=== PATIENT | male | born 1950 | race Caucasian/White ===

== ENCOUNTER 2025-05-23 03:36 | Inpatient (IN) | payer MEDICARE ==
[~2025-05-23] VITALS: Ht 177.8 cm; Wt 84.0 kg
[2025-05-23] VITALS (13 sets, daily range): BP systolic 116–155; BP diastolic 52–65; PULSE 59–70; RESP 14–21; TEMP 97.8–99.2; O2SAT 94–99
--- NOTE | 2025-05-23 03:50 | Physician Documentation ---
History of Present Illness ~ Chief Complaint: Shortness of Breath Stated Complaint: TRANSFER Time Seen by MD: 03:49 HPI 75-year-old male who presents as a transfer from outside hospital as a possible NSTEMI The patient tells me that over the last week he has been having viral type symptoms with congestion and a cough. He did have a really bad coughing fit where he could not catch his breath. Following this he developed pain in his central chest. He describes it as chest pressure, no radiation. He went to the outside hospital, where he was told all of his testing was normal except his repeat troponin was elevated. He currently denies any chest pain or other symptoms. He denies any history of heart problems. He had a normal stress test about 2 or 3 years ago. Review of Systems Constitutional: Denies: fever ENT: Reports: nose congestion Respiratory: Reports: cough, shortness of breath Cardiovascular: Reports: chest pain Physical Exam Vital Signs: Temperature: 98.1, Source: Oral, Heart Rate: 69, Respiratory Rate: 18, BP: 147/54, Pulse Oximetry: 98, Weight: 84.090 Physical Exam General: This is a pleasant and very well-appearing older man, sitting calmly in bed HEENT: Atraumatic, oropharynx is moist Heart: Regular rate, normal-appearing peripheral perfusion Lungs: normal work of breathing, normal oxygen saturation on room air Neuro: Alert and oriented Psychiatric: Calm and cooperative with exam Progress Results/Orders Results/Orders Orders - NAFISA HARVEY MD Chest,Single View (05/23/25 03:46) Monitor (05/23/25 03:46) Saline Lock (05/23/25 03:46) Oxygen (05/23/25 03:46) Cbc/Diff (05/23/25 03:46) BMP (05/23/25 03:46) PBNP (05/23/25 03:46) Hs Troponin I W Calculations (05/23/25 03:46) Hs Troponin I W Calculations (05/23/25 05:46) Hs Troponin I W Calculations (05/23/25 06:46) Completed Orders - NAFISA HARVEY MD Electrocardiogram (05/23/25 03:46) Vital Signs 05/23/25 03:37 Temp 98.1 Pulse 69 Resp 18 B/P (MAP) 147/54 Pulse Ox 98 Laboratory Tests Test 05/23/25 03:54 EKG/XRAY/CT/US/VASC/MRI EKG : Additional Comment I personally interpreted the EKG and this shows: Sinus rhythm, rate 69, QTC 428, no STEMI, there was artifact Consults/PCP Consults/PCP : Additional Comment Consult: I spoke to the internal medicine service, for admission in the hospital Heart Score: Heart Score Response (Comments) Value History Moderate Suspicious 1 EKG Normal 0 Age >65 2 Risk Factors No known risk factors 0 Troponin >3 x's Normal limit 2 Total 5 Medical Decision Making Additional information obtaine: old records Findings Reviewed outside hospital records including previous workup that shows an elevated troponin of 0.24 Heart Score: 5 Differential Dx:Considerations: Include: myocardial infarction, pneumonia, upper resp. infection Additional Infomation The patient presents with an episode of chest pain and new slightly elevated troponin. Currently he is asymptomatic. He already received Lovenox. Repeat EKG without acute ischemic changes. Repeat labs including troponin will be obtained and he will be admitted to the medicine service for further workup and treatment. Departure Impression: Primary Impression: NSTEMI (non-ST elevated myocardial infarction) Referrals: NO PRIMARY CARE PROVIDER (PCP) Signature Scribe Signature: na Attestation: NAFISA Bedoya MD May 23, 2025 03:50
--- NOTE | 2025-05-23 03:52 | ELECTROCARDIOGRAPH REPORT ---
[facility] Test Date: 2025-05-23 Test Time: 03:49:55 Pat Name: ROBERTA EISENBERG Department: [facility]- Patient ID: [id number] Room: ED 1 Gender: M Production Clerks Supervisor: : 1950 Requested By: NAFISA HARVEY Order Number: [id number] Reading MD: Dr. XIMENA Padilla Measurements Intervals [place] Rate: 69 P: 0 IA: 0 QRS: -58 QRSD: 104 T: 36 QT: 399 QTc: 428 Interpretive Statements normal sinus rhythm with baseline artifact Left anterior fascicular block Abnormal R-wave progression, late transition Borderline T abnormalities, anterior leads Baseline wander in lead(s) I Electronically Signed On 05-24-2025 15:17:[address] XIMENA Padilla Please click the below link to view image of tracing.
[2025-05-23 04:10] LABS: MEAN PLATELET VOLUME 6.5 FL (7.4-10.4); RED CELL DISTRIBUTION WIDTH 13.3 % (11.5-14.5)
[2025-05-23 04:27] LABS: CREATININE 1.08 MG/DL (0.60-1.10); PRO BRAIN NATRIURETIC PEPTIDE 305 PG/ML (0-450); TOTAL CARBON DIOXIDE 23.9 MMOL/L (24-32); eCRCL 61 ML/MIN; eGFR 67 ML/MIN
[2025-05-23] MEDS ORDERED: magnesium Cl slow-release 64mg tablet PO PRN (05:45)
[2025-05-23] MEDS: HEPARIN DRIP-CARDIAC**PHARMACIST-TO-DOSE IV ONE (05:45)
[2025-05-23] MEDS ORDERED: magnesium sulf-water 4G/100mL 100 ML IV PRN (05:45)
[2025-05-23] MEDS ORDERED: aminophylline 250mg/10ml inj. IV PRN (05:45)
[2025-05-23] MEDS ORDERED: magnesium hydroxide 30ml (MOM) UD suspension PO PRN (05:45)
[2025-05-23] MEDS ORDERED: ondansetron/PF 4mg/2ml inj IV PRN (05:45)
[2025-05-23] MEDS ORDERED: mag hydrox/Alum hydrox/simeth 30ml oral suspension PO PRN (05:45)
[2025-05-23] MEDS ORDERED: magnesium sulf-water 2g/50mL 50 ML IV PRN (05:45)
[2025-05-23] MEDS ORDERED: potassium Cl 40MEQ/1/2NS 520ml 520 ML IV PRN (05:45)
[2025-05-23] MEDS ORDERED: regadenoson 0.4mg/5ml syringe IV PRN (05:45)
[2025-05-23] MEDS ORDERED: potassium Cl 20 mEq SR tablet PO PRN ×2 (05:45)
[2025-05-23] MEDS ORDERED: metoprolol tartrate 1mg/ml inj IV PRN (05:45)
--- NOTE | 2025-05-23 05:55 | HISTORY AND PHYSICAL-Residence ---
History & Physical Providers to Resident Creating Document: ANATOLIY SOLOMON, RES ~ History of Present Illness Reason for Admit\Complaint: NSTEMI History of Present Illness This is a 75-year-old male with a history of hypertension, hyperlipidemia, diabetes mellitus was transferred from [place] from [facility]. Patient was having cough and cold for the last two days and yesterday night after having dinner he had a bout of cough and post that he was unable to breathe. During the same time he also had a crushing chest pain in the middle of the chest, graded 6/10, nonradiating, lasted up to 4-5 hours until he was taken to the ER at [facility]. He denied any palpitations, shortness of breadth, orthopnea, PND, leg swellings, fever. He had one episode of chest pain during a hike few years ago, he had a stress test about 2-3 years ago which was normal. He also saw a park interpretive specialist at [place] in was told he had no issues with heart. Course at [facility]: He was given breathing treatment with which his breathing got better. COVID and influenza test was negative. First troponin negative 2nd troponin 0.24. Was also given 325 mg of aspirin and one full dose of Lovenox. Later his chest pain improved. Currently his chest pain is about 1/10. Allergies: Coded Allergies: metronidazole (Verified Allergy, Unknown, 05/23/25) Past Medical History Past Medical History Hypertension Hyperlipidemia Diabetes mellitus Past Surgical History Surgical History Comment No previous surgeries Had colonoscopy one month ago showed benign polyps Family History Family History: FH: cancer FATHER FH: heart disease MOTHER FH: prostate cancer GRANDFATHER OR GRANDMOTHER Past Social History Social History Comment He quit smoking more than 45 years ago He drinks wine occasionally No history of drug use Lives with his partner Functionally independent He previously worked in the [employer] and [employer] ROS Constitutional: Denies: no symptoms reported, see HPI, chills, diaphoresis, fever, malaise, weakness, other Eyes: Denies: no symptoms reported, see HPI, pain, discharge, blurred vision, double vision, itching, photophobia, redness, tearing, other ENT: Reports: nose congestion Respiratory: Reports: cough, shortness of breath Cardiovascular: Reports: chest pain Gastrointestinal: Denies: no symptoms reported, see HPI, abdomen distended, abdominal pain, nausea, vomiting, diarrhea, constipated, melena, hematemesis, hematochezia, rectal bleeding, rectal pain, dysphagia, poor appetite, poor fluid intake, other Genitourinary: Denies: no symptoms reported, see HPI, burning, discharge, dysuria, frequency, flank pain, hematuria, incontinence, pain, decreased urine output, urgency, other Male Genitalia: Denies: no symptoms reported, see HPI, penile discharge, penile sore, testicular pain, testicular swelling, other Neurological: Denies: no symptoms reported, see HPI, speech problem, headache, dizziness, fainting, tingling, left sided numbness, right sided numbness, left sided weakness, right sided weakness, problems walking, unable to move lower ext, unable to move upper ext, petit mal seizures, tonic-clonic seizures, cognitive dysfunction, other Musculoskeletal: Denies: no symptoms reported, see HPI, pain, swelling, back pain, gout, joint pain, joint swelling, muscle pain, muscle swelling, muscle stiffness, neck pain, other Exam Vitals: Vital Signs Date Time Temp Pulse Resp B/P (MAP) Pulse Ox O2 Delivery O2 Flow Rate FiO2 05/23/25 05:23 05/23/25 05:23 98.1 76 12 97 0 General: Alert, oriented, not in acute distress Head: Normocephalic with an atraumatic Eyes: Pupils- 3mm, reacting to light, conjunctiva- anicteric Nose and throat: No polyps, septum- normal, no mucosal ulcers Neck: Supple, no lymphadenopathy, no carotid bruit Respiratory: No use of accessory muscles of respiration, Bilateral normal vesicular breath sounds heard. No wheeze, rhochi or creps Cardiac: S1-S2 heard, rhythm regular, no gallop/murmur Abdomen: non distended, no tenderness, no organomegaly, bowel sounds - heard Extremities: no clubbing, no pedal edema, no deformities, peripheral pulses - 2+ Skin: warm and dry, no rash, no purpura Neuro: No focal deficit, gross cranial nerve exam - normal Diagnostic Data Last Recorded Lab Results: 05/23/25 0354 05/23/25 0354 Advance Care Planning Advanced Care plannin - 30 Minutes (I spent 17 minutes in discussing various resuscitative measures, the patient chose to be full code.) Additional Plan Assessment This is a 75-year-old male with a history of hypertension, hyperlipidemia, diabetes mellitus was transferred from [facility] from [facility]. Plan NSTEMI BRITNI score 3 Patient had an episode of crushing chest pain that lasted 5 hours Troponins elevated, 1st troponin normal, 2nd troponin 0.20, 3rd troponin 1287 EKG showed sinus rhythm, no ST-T changes Echo ordered Patient was given one dose of aspirin 325 mg at [facility] Started aspirin 81 mg and atorvastatin 40 mg daily. Started on metoprolol succinate 25 mg One dose of Lovenox was given in the ER, started on heparin drip. Lexiscan ordered Consult cardiology in the morning. Type 2 diabetes mellitus A1c ordered Started on low-dose protocol and 16 units Lantus Hypertension Blood pressure in the normal range Continue Patient's home medication include lisinopril 10 mg Hyperlipidemia Lipid panel ordered Started on atorvastatin 40 mg. BPH Continue patient's home medication tamsulosin once the med rec is done. Code status: Full code DVT prophylaxis: Heparin Diet: NPO Anatoliy Solomon M.D PGY2 Attending Physician Attestation Evaluation via HIPAA compliant A/V device. I discussed the case with the resident and I agree with the resident's documentation. 75-year-old man with a history of essential hypertension and dyslipidemia admitted with NSTEMI. The treatment plan includes: Usual medical therapy for ACS with antiplatelet therapy with aspirin, statin therapy, beta-blockade and IV UFH. Transthoracic echocardiogram. Screening for diabetes mellitus type 2. Cardiology evaluation. Time spent 50 minutes. Date of Service: May 23, 2025 Billing Provider: ASHWIN CHILDERS MD, PRAVAHIKA, RES May 23, 2025 05:55 ASHWIN CHILDERS MD May 23, 2025 06:36
[2025-05-23] MEDS ORDERED: glucagon, human recombinant 1mg kit SUBCUT PRN (06:05)
[2025-05-23] MEDS ORDERED: dextrose 50%-water 50ml dispensing syringe IV PRN ×2 (06:05)
[2025-05-23] MEDS ORDERED: DEXTROSE 15 GM of carb/4 tabs (each vial/BOTTLE has 4 tablets) PO PRN ×2 (06:05)
[2025-05-23] MEDS: HEPARIN DRIP INITAL BOLUS --- DO NOT GIVE/ORDER MC ONE (06:40)
[2025-05-23] MEDS ORDERED: heparin 10,000 units/1 ML INJ IV PRN (06:40)
[2025-05-23] MEDS: MESSAGE TO NURSING IV ONE (06:45)
[2025-05-23] MEDS: INSULIN LISPRO 100 UNIT/ML INSULN.PEN MULTI-DOSE SQ SCH (07:00)
[2025-05-23] MEDS: K and/or MAG REPLACEMENT MC SCH (08:00)
[2025-05-23] MEDS: heparin 25,000 UNIT/250ml bag 250 ML IV PRN (08:04)
[2025-05-23] MEDS: metoprolol succinate 25mg (24-HOUR) SR. Tablet PO SCH (08:16)
[2025-05-23] MEDS: aspirin 81mg, enteric-coated 1 TAB TABLET.DR PO SCH (08:16)
[2025-05-23] MEDS: docusate sod 100mg capsule PO SCH (08:17)
[2025-05-23] MEDS ORDERED: ATOR10TA87 PO (09:40)
[2025-05-23] MEDS ORDERED: METF-900 PO (09:40)
[2025-05-23] MEDS ORDERED: LISI20TA28 PO (09:40)
[2025-05-23] MEDS ORDERED: FINA5TAB11 PO (09:41)
[2025-05-23] MEDS ORDERED: TAMS-55 PO (09:41)
[2025-05-23] MEDS ORDERED: verapamil 2.5 mg/ml inj IV ONE (11:43)
[2025-05-23] MEDS ORDERED: fentaNYL/PF 50MCG/1 ML 2ML syringe ONE (11:43)
[2025-05-23] MEDS ORDERED: midazolam 1 mg/ML 2ml injection ONE (11:43)
[2025-05-23] MEDS ORDERED: LIDOcaine 1% (10mg/ml) 2ml vial ONE (11:43)
[2025-05-23] MEDS ORDERED: nitroGLYCERIN 500mcg/5mL D5W 5 ML IV ONE (11:44)
[2025-05-23] MEDS ORDERED: heparin 1,000unit/ml 10ml vial 10 ML ONE (11:44)
[2025-05-23] MEDS ORDERED: iohexol 350 MG/ML 50ML vial IV ONE (11:44)
--- NOTE | 2025-05-23 14:50 | PROGRESS NOTE- Residence ---
Progress Note - Resident Providers to CC Resident Creating Document: EMIGDIO THOMAS RES ~ Central Line/PICC still needed: N\A Seth-Non Protocol Seth Indications Met/Not Met: F/C Indications Not Met Antibiotic Timeout Antibiotic Ordered?: No Subjective Patient was examined bedside. He is not complaining of chest pain/chest pressure anymore. He is NPO, scheduled for cardiac catheterization. Objective Vital Signs Date Time Temp Pulse Resp B/P (MAP) Pulse Ox O2 Delivery O2 Flow Rate FiO2 05/23/25 14:35 67 133/56 (81) 97 05/23/25 14:20 98.1 14 Room Air 05/23/25 06:46 0 21 Result Diagram: 05/23/25 0354 05/23/25 0736 General: Well alert, well oriented, not confused, not agitated, not in acute distress, well cooperated during the physical. HEENT: Conjunctive are pink, sclerae clear, no icterus, pupil is equal in both sides, reactive to light, no ear discharge, no pharyngeal erythema or an edema. Neck: Supple, no JVD, no lymphadenopathy and thyromegaly. Chest: Equal air entry on both lungs, no added sounds, no wheeze. Cardiovascular: S1-S2 regular sinus rhythm and, regular rate, no gallops, no rubs, no murmurs Abdomen: No visible peristalsis, Bowel sounds present on auscultation, soft, nontender, no guarding, no rigidity Extremities: No obvious deformities, no pitting edema bilaterally, capillary refill intact, peripheral pulsations are intact on both sides Central Nervous System: No focal neurological deficits, no motor or sensory weakness in all 4 extremities, could move all 4 extremities, 2+ deep tendon reflexes, negative Babinski. Musculoskeletal: No joint swelling, deformities, inflammations, and no scoliosis and back tenderness Skin: Warm and dry. Coagulation Studies Laboratory Tests Test 05/23/25 07:36 05/23/25 13:38 APTT (Heparin Protocol) 29 SECONDS (45-60) L Coagulation Comments Activated Clotting Time 129 SEC (101-148) Counseling Services Smoking & Tobacco Cessation: N/A Assessment Assessment Assessment: This is a 75-year-old male with past medical history of hypertension, hyperlipidemia, type 2 diabetes who came in with chest pressure, chest discomfort after a bout of cough. He was transferred from [place] in view of raising trops. His current troponin level was 1300. Dr. Padilla, intervention gaming cashier was consulted. After discussion with the patient a shared decision was made to undergo cardiac catheterization in view of his age, comorbidities, raising trops. 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 No stent was placed. Recommended medical management. Plan Plan ACS- NSTEMI BRITNI score 3 Patient had symptoms of constricting chest pain with elevated troponin to the level of 1300 EKG showed sinus rhythm, no ST-T changes Echo ordered Currently on heparin drip. Cardiology Dr. Padilla was consulted He underwent cardiac catheterization with no stenting. Medical management with metoprolol 25 mg p.o. daily, atorvastatin 80 mg p.o. daily aspirin 81 mg p.o. daily clopidogrel 75 mg p.o. daily. Awaiting echo results. Type 2 diabetes mellitus Hypertension Hyperlipidemia BPH Hemoglobin A1c 6.9, awaiting lipid panel Continue low-dose protocol and 16 units Lantus Continue home medication lisinopril 10 mg p.o. daily, atorvastatin increased to 80 mg p.o. daily, tamsulosin 0.4 mg p.o. daily Code status: Full code DVT prophylaxis: Heparin drip Analgesia/sedation: Morphine/Kermit Line/tube: PIV GI prophylaxis: None Nutrition: Heart healthy PT: Ordered. Prognosis: Guarded Disposition: Continue medical management in PCU Resident attestation: This case has been feeling discussed with senior resident and attending physician. Emigdio Thomas MD PGY1, Internal Medicine [facility] Date of Service: May 23, 2025 Billing Provider: ARTIS MARQUEZ DO Common Visit Codes: NOT BILLABLE (Admitted after midnight to be billed by agronomy supervisor) EMIGDIO THOMAS, RES May 23, 2025 14:50 ARTIS MARQUEZ DO May 23, 2025 15:50
[2025-05-23 16:14] LABS: CHOL/HDL RATIO 3.1 (0.00-4.99); LDL CHOLESTEROL 65 MG/DL (50-100)
[2025-05-23] MEDS: insulin glargine (Lantus) pen - multi-dose SQ SCH (20:15)
[2025-05-23] MEDS: ACETYLCYSTEINE 200 MG/1 ML 4 ML ORAL SOLUTION PO SCH (20:19)
[2025-05-24 02:02] VITALS: BP 119/51; PULSE 56; RESP 14; TEMP 98.4; O2SAT 97
[2025-05-24 06:35] LABS: MEAN PLATELET VOLUME 7.0 FL (7.4-10.4); RED CELL DISTRIBUTION WIDTH 13.1 % (11.5-14.5)
[2025-05-24 06:36] LABS: CHOL/HDL RATIO 3.1 (0.00-4.99); CREATININE 1.06 MG/DL (0.60-1.10); LDL CHOLESTEROL 58 MG/DL (50-100); TOTAL CARBON DIOXIDE 26.9 MMOL/L (24-32); eCRCL 62 ML/MIN; eGFR 68 ML/MIN
[2025-05-24 07:03] VITALS: BP 129/56; PULSE 52; RESP 13; TEMP 97.9; O2SAT 97
[2025-05-24] MEDS: metoprolol succinate 25mg (24-HOUR) SR. Tablet PO SCH (07:08)
[2025-05-24] MEDS: aspirin 81mg, enteric-coated 1 TAB TABLET.DR PO SCH (07:15)
[2025-05-24 08:00] VITALS: RESP 13; O2SAT 97
[2025-05-24] MEDS ORDERED: COR3.125T PO (10:18)
[2025-05-24] MEDS ORDERED: ATOR20TA PO (10:18)
[2025-05-24] MEDS ORDERED: CLOP75TA34 PO (10:18)
[2025-05-24] MEDS ORDERED: ASPI-280 PO (10:23)
--- NOTE | 2025-05-24 15:41 | CARDIOLOGY REPORT ---
APPROVED REPORT EXAM: Comprehensive 2D, Doppler, and color-flow Echocardiogram. Patient Location: 3[address] Blood Pressure: 147/57 mmHg Heart Rate: 61 bpm Rhythm: Sinus Rhythm Indications Angina/Chest Pain Transfer from [facility]/ NSTEMI Post Cath Procedure (70% LAD) Elevated Troponins Hypertension Diabetes Mellitus II Instant Printer Operator: MD Steven (Consult, Cath Procedure) Previous echo: None 2D Dimensions RVDd 4.2 cm LA Diam 4.5 cm RA Minor 4.9 cm LVOT Diameter 2.29 (1.8-2.4cm) IVC 19.31 mm CO 4.2 L/min M-Mode Dimensions RVDd 3.71 (2.1-3.2cm) Left Atrium(MM) 4.32 (2.5-4.0cm) IVSd 1.24 (0.7-1.1cm) LVDd 5.03 (4.0-5.6cm) Aortic Root 3.30 (2.2-3.7cm) PWd 1.07 (0.7-1.1cm) Aortic Cusp Exc 2.35 (1.5-2.0cm) IVSs 1.66 cm MV EPSS 0.9 (<0.5cm) LVDs 3.36 (2.0-3.8cm) FS (%) 35 % PWs 1.65 cm ESV(Teich) 38.4 ml LVEF(%) 63 (>50%) Aortic Valve AoV Peak [place]. 122.9 cm/s AoV VTI 25.9 cm AO Peak GR. 6.0 mmHg AO Mean GR. 3 mmHg LVOT VTI 19.34 cm LVOT Peak [place]. 99.0 cm/s ANGELINA(VTI)/BSA 3.07 cm2/m2 ANGELINA (VTI) 3.07 cm2 AV DI 0.75 % Mitral Valve MV E Velocity 64.8 cm/s MV Peak Gr. 3 mmHg MV DECEL TIME 236 ms MV A Velocity 91.4 cm/s MV PHT 60 ms E/A Ratio 0.7 MVA (PHT) 3.67 cm2 MV VMax 85.7 cm/s TDI Medial E' P. V 15.55 cm/s E/Medial E' 4.2 Tricuspid Valve TR P. Velocity 231 cm/s RAP ESTIMATE 10 mmHg TR Peak Gr. 21 mmHg RVSP 31 mmHg Pulmonary Vein S1 Velocity 63.9 cm/s D2 Velocity 41.6 cm/s PVa Velocity 40.2 cm/s PVa Duration 184 msec LEFT VENTRICLE Normal LV size and function. Mild concentric hypertrophy. Overall LVEF is 60-65%. RIGHT VENTRICLE Right ventricle is moderately dilated with reduced function. Moderator band is seen in the right ventricle. Estimated PA systolic pressure is 31 mmHg. ATRIA Left atrium is mildly dilated. Right atrium appears to be moderately dilated. AORTIC VALVE Trileaflet AV appears sclerotic without stenosis. Trace insufficiency. MITRAL VALVE Mild MV annular calcification without stenosis. Mild regurgitation. TRICUSPID VALVE TV appears structurally normal with trace regurgitation. PULMONIC VALVE Grossly normal PV without stenosis, physiologic insufficiency. GREAT VESSELS The aortic root is normal in size. IVC is normal in size and collapses less than 50% with inspiration. PERICARDIUM Normal pericardium. No pericardial effusion seen. Other Information Study Quality: Adequate Conclusion Overall LVEF is 60-65%. Normal LV size and function. Mild concentric hypertrophy. Right ventricle is moderately dilated with reduced function. Moderator band is seen in the right ventricle. Estimated PA systolic pressure is 31 mmHg. Trileaflet AV appears sclerotic without stenosis. Trace insufficiency. Mild MV annular calcification without stenosis. Mild regurgitation. TV appears structurally normal with trace regurgitation. Grossly normal PV without stenosis, physiologic insufficiency. Normal pericardium. No pericardial effusion seen.
--- NOTE | 2025-05-24 17:24 | DISCHARGE SUMMARY-Residence ---
Discharge Summary Providers to Resident Creating Document: BHARATH PACHECO, RES ~ Discharge Summary Admission Diagnosis: NSTEMI Hospital Course DATE OF ADMISSION: 05/23/2025 DATE OF DISCHARGE: 05/24/2025 Discharge disposition: Home Imaging: Echocardiogram 05/23/2025: Overall LVEF is 60-65%. Normal LV size and function. Mild concentric hypertrophy. Right ventricle is moderately dilated with reduced function. Moderator band is seen in the right ventricle. Estimated PA systolic pressure is 31 mmHg. Trileaflet AV appears sclerotic without stenosis. Trace insufficiency. Mild MV annular calcification without stenosis. Mild regurgitation. TV appears structurally normal with trace regurgitation. Grossly normal PV without stenosis, physiologic insufficiency. Normal pericardium. No pericardial effusion seen. Discharge Diagnosis\Comment: ACS- NSTEMI Type 2 diabetes mellitus Hypertension Hyperlipidemia BPH Operations\Procedures: Cardiac catheterization by Dr. Padilla on 05/23/2025 Consultants: Dr. Padilla, safety council director Complications: None Condition on DC: Stable New Medications: Aspirin (Aspirin) 81 Mg Tab.chew 1 TAB PO DAILY for 30 Days, #30 TAB Carvedilol (Carvedilol) 3.125 Mg Tablet 1 TAB PO Q12H for 30 Days, #60 TAB 0 Refills Clopidogrel Bisulfate (Clopidogrel) 75 Mg Tablet 75 MG PO DAILY for 30 Days, #30 TAB Do not stop medication unless instructed by prescriber. Changed Medications: Atorvastatin Calcium* (Lipitor*) 20 Mg Tablet 1 TAB PO DAILY for 30 Days, #30 TAB (Changed from: Atorvastatin Calcium* (Lipitor*) 10 Mg Tablet 1 Tab PO DAILY 30 Days #30 TAB) Continued Medications: Finasteride (PROSCAR tablet) 5 Mg Tablet 5 MG PO, TAB Lisinopril (Lisinopril) 20 Mg Tablet 0.5 TAB PO DAILY for 30 Days, #30 TAB Metformin Hcl* (Metformin ER*) 500 Mg Tab.sr.24h 1 TAB PO Q12H for 30 Days, #60 TAB Tamsulosin Hcl* (Flomax*) 0.4 Mg Cap.sr.24h 1 CAP PO DAILY for 30 Days, #30 CAP Discharge Summary: The patient is a 75-year-old male with past medical history hypertension, hyperlipidemia, diabetes mellitus, was transferred from [facility] for management of NSTEMI. The patient was having cold and cough for the last two days and after dinner the previous day, he had bouts of cough after which he was unable to breathe. He also had a crushing chest pain. On evaluation in the hospital, his troponins were elevated. Influenza and COVID were negative. He received loading dose of aspirin and Lovenox. He was transferred here for fu rther management. Patient's troponins in the hospital were 1287, 1267. He was started on aspirin, statins, beta blockers and heparin drip. Cardiology was consulted and the patient underwent cardiac catheterization which showed 70% stenosis in 1st diagonal but no intervention done. He was started on Plavix by Cardiology. After catheterization, the patient did not have anymore chest pains. On the day of discharge, the patient was stable and had no new complaints. He was eager to go home. He was sent home on aspirin, Plavix, Coreg. Doubled his atorvastatin and all the instructions were provided. Advice at discharge: Follow up with PCP in 1 week. Follow up with your safety council director for further management. Strictly take aspirin and plavix once daily. Monitor your blood pressures regularly and do not take carvedilol (coreg) and lisinopril if your blood pressure is below 90/60 mmHg. We have doubled your lipitor (atorvastatin) from 10 mg to 20 mg daily. Recheck lipid panel, CMP in 3-6 months. Goal LDL less than 55. In the event of worsening of symptoms, call 911 or go to the ER immediately. Examination at discharge: General: Awake and Alert, no acute distress. HEENT: Conjunctiva pink, Sclera clear, Mucus Membranes moist. Neck: Supple without masses and tenderness. Resp: Unlabored. Lungs clear to auscultation bilaterally. Heart: Regular Rate and rhythm, normal S1 and S2 without murmur, rub or gallop. Abdomen: Soft and non tender no organomegaly Extremities: No cyanosis,clubbing or edema. Skin: Warm and Dry. Vital Signs Date Time Temp Pulse Resp B/P (MAP) Pulse Ox O2 Delivery O2 Flow Rate FiO2 05/24/25 08:00 13 97 Room Air 0.0 21 05/24/25 07:03 97.9 52 129/56 (80) Laboratory Tests Test 05/23/25 03:54 05/23/25 06:59 05/23/25 07:36 05/23/25 12:29 White Blood Count 8.8 X10'3 Red Blood Count 4.04 X10'6 Hemoglobin 12.2 g/dl Hematocrit 36.0 % Mean Corpuscular Volume 89.0 FL Mean Corpuscular Hemoglobin 30.3 PG Mean Corpuscular Hemoglobin Concent 34.0 g/dL Red Cell Distribution Width 13.3 % Platelet Count 205 X10'3 Mean Platelet Volume 6.5 FL Neutrophils (%) (Auto) 78.1 % Lymphocytes (%) (Auto) 11.4 % Monocytes (%) (Auto) 7.2 % Eosinophils (%) (Auto) 3.0 % Basophils (%) (Auto) 0.3 % Neutrophils # (Auto) 6.9 X10'3 Lymphocytes # (Auto) 1.0 X10'3 Monocytes # (Auto) 0.6 X10'3 Eosinophils # (Auto) 0.3 X10'3 Basophils # (Auto) 0.0 X10'3 CBC Comment Sodium Level 141 MMOL/L Potassium Level 4.5 MMOL/L 4.7 MMOL/L Chloride Level 109 MMOL/L Carbon Dioxide Level 23.9 MMOL/L Anion Gap 8 Blood Urea Nitrogen 34 MG/DL Creatinine 1.08 MG/DL Estimated GFR/1.73 m2 67 ML/MIN BUN/Creatinine Ratio 31.5 Glucose Level 138 MG/DL Hemoglobin A1c 6.9 % Calcium Level 8.6 MG/DL Troponin I High Sensitivity 1287 ng/L 1269 ng/L Pro-B-Type Natriuretic Peptide 305 PG/ML Albumin 3.5 G/DL Chemistry Comments Glucometer 163 mg/dl 145 mg/dl APTT (Heparin Protocol) 29 SECONDS Coagulation Comments Magnesium Level 1.8 MG/DL Troponin I High Sens Percent Delta 1 % Troponin I Hi Sens Absolute Change -18 ng/L Test 05/23/25 13:38 05/23/25 15:49 05/23/25 17:28 05/23/25 20:04 Activated Clotting Time 129 SEC Triglycerides Level 169 MG/DL Cholesterol Level 122 MG/DL LDL Cholesterol 65 MG/DL HDL Cholesterol 40 MG/DL Cholesterol/HDL Ratio 3.1 Chemistry Comments Glucometer 203 mg/dl 246 mg/dl Test 05/24/25 05:41 White Blood Count 6.3 X10'3 Red Blood Count 3.83 X10'6 Hemoglobin 11.8 g/dl Hematocrit 33.7 % Mean Corpuscular Volume 88.1 FL Mean Corpuscular Hemoglobin 30.7 PG Mean Corpuscular Hemoglobin Concent 34.9 g/dL Red Cell Distribution Width 13.1 % Platelet Count 202 X10'3 Mean Platelet Volume 7.0 FL Neutrophils (%) (Auto) 56.3 % Lymphocytes (%) (Auto) 23.6 % Monocytes (%) (Auto) 14.4 % Eosinophils (%) (Auto) 4.9 % Basophils (%) (Auto) 0.8 % Neutrophils # (Auto) 3.6 X10'3 Lymphocytes # (Auto) 1.5 X10'3 Monocytes # (Auto) 0.9 X10'3 Eosinophils # (Auto) 0.3 X10'3 Basophils # (Auto) 0.1 X10'3 CBC Comment Sodium Level 143 MMOL/L Potassium Level 4.5 MMOL/L Chloride Level 110 MMOL/L Carbon Dioxide Level 26.9 MMOL/L Anion Gap 6 Blood Urea Nitrogen 22 MG/DL Creatinine 1.06 MG/DL Estimated GFR/1.73 m2 68 ML/MIN BUN/Creatinine Ratio 20.8 Glucose Level 140 MG/DL Calcium Level 8.6 MG/DL Magnesium Level 1.5 MG/DL Albumin 3.1 G/DL Triglycerides Level 169 MG/DL Cholesterol Level 117 MG/DL LDL Cholesterol 58 MG/DL HDL Cholesterol 38 MG/DL Cholesterol/HDL Ratio 3.1 Chemistry Comments The patient was seen and evaluated with attending physician, Dr. Valverde on the day of discharge. Time spent on discharge 35 minutes. *Problems/Diagnosis: (1) NSTEMI (non-ST elevated myocardial infarction) Status: Acute Total Time Spent on D/C: > 30 Minutes Date of Service: May 24, 2025 Billing Provider: ARTIS VALVERDE DO Common Visit Codes: 84480-AAY/OBS DISCH DAY >30min TREVINBHARATH VEGAJOSELIN, RES May 24, 2025 17:21 ARTIS VALVERDE DO May 24, 2025 17:34
--- NOTE | 2025-05-25 07:35 | CONSULTATION ---
DATE OF CONSULTATION: 05/23/2025 DICTATING PHYSICIAN: XIMENA Padilla MD REQUESTING PHYSICIAN: Dr. Smith [facility]. LEATHER ROLLER: Dr. Padilla. REASON FOR CONSULTATION: Chest pain with elevated troponin. HISTORY OF PRESENT ILLNESS: The patient is a 75-year-old male with hypertension, hyperlipidemia, and diabetes who was camping in [facility] [place]. In the evening around 5:00, he had a coughing bout followed by severe crushing chest pain with shortness of breath, he rated 6/10, nonradiating, lasted 4 to 5 hours. He called 911 and went to [facility] in [place], and was subsequently transferred to [facility]. He was subsequently hospitalized via the hospitalist and a cardiology consult was requested. The patient denies any prior history of myocardial infarction or congestive heart failure. No history of syncope or palpitations or syncopal episode. No history of congenital rheumatic heart disease. Normally he is pretty active as he plays golf and then he walks 1 to 2 miles a day. He has mild dyspnea while going uphill. About 3 years ago, he had similar chest pain for which he had an evaluation with a myocardial perfusion scan and echocardiogram, which were noted to be negative and was treated medically. PAST MEDICAL HISTORY: * Hypertension * Hyperlipidemia * Diabetes * Ocular migraine. * Benign prostatic hypertrophy. PAST SURGICAL HISTORY: He had a bilateral hernia surgery at age 10. FAMILY HISTORY: His father at 83. Mother at 80 of heart failure. SOCIAL HISTORY: The patient is and lives with his . He is retired. 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 He smoked from age 14 to 26. He used to drink alcohol heavily, but not anymore. MEDICATIONS: At home include atorvastatin 10 mg p.o. daily, finasteride 5 mg p.o. daily, lisinopril 20 mg p.o. daily, metformin 500 mg p.o. daily, and tamsulosin 0.4 mg p.o. daily. REVIEW OF SYSTEMS: HEENT: Wears reading glasses. No hearing impairment. RESPIRATORY: Mild exertional shortness of breath. MUSCULOSKELETAL: Occasional arthralgias. CENTRAL NERVOUS SYSTEM: No history of stroke or TIA, no paresthesias. PSYCHIATRIC: No anxiety or depression. SKIN: None. ENDOCRINE: None. The patient also has episodes of lightheadedness for the last few years, once a week, comes with walking. It generally resolves with resting and hydration. PHYSICAL EXAMINATION: GENERAL: The patient conscious, alert, and oriented. Chest pain free. He is in no acute distress. VITAL SIGNS: Temperature is 98.3. Pulse 59. Blood pressure is 128/61. NECK: No JVD. Carotids are equally felt well. CARDIAC: Regular rate and rhythm. S1 and S2 normal. No S3, S4, or murmurs. LUNGS: Clear to auscultation bilaterally. ABDOMEN: Soft. Bowel sounds are present. EXTREMITIES: No edema, cyanosis, or clubbing seen. NEUROLOGIC: No lateralizing signs. LABORATORY DATA: Labs include WBC is 8.8, hemoglobin 12.2, hematocrit 36, platelet count 205. Sodium 141, potassium 4.5, chloride 108, carbon dioxide 24, BUN 34, creatinine 1.08. Troponin 1287 and came down to 1269. DIAGNOSTIC DATA: EKG: Normal sinus rhythm, nonspecific ST-T changes. IMPRESSION AND PLAN: * A 75-year-old male with diabetes, hypertension, hyperlipidemia with chest pain and elevated troponin. I recommend coronary angiography. Risks, benefits, and alternative options were discussed with the patient. The patient agrees and would like to proceed with the same. We will arrange for the same. * Diabetes, hypertension, hyperlipidemia. Extensively counseled on coronary risk factor modification to keep low-density lipoprotein less than 51 mg/dL, systolic blood pressure less than 130 mmHg, and hemoglobin A1c less than 7%. * Other comorbidities include ocular migraine. XIMENA Padilla MD TID: [id number] RECEIPT: [id number] /[facility] cc: Lee Smith
--- NOTE | 2025-05-25 07:43 | CARDIOLOGY REPORT ---
DATE OF SERVICE: 05/23/2025 DICTATING PHYSICIAN: XIMENA Padilla MD HEIGHT: 177 cm. WEIGHT: 84.1 kg. BODY SURFACE AREA: 2.01 m sq. BUSINESS CONTINUITY MANAGEMENT DIRECTOR: XIMENA Padilla MD PRIMARY PHYSICIAN: Dr. Smith at [facility]. INDICATION: The patient is a 75-year-old male with diabetes, hypertension, and hyperlipidemia who was camping in [facility], developed severe substernal crushing chest pain, 12/16, came to the emergency room and found to have elevated troponin in the 1200 range. After discussing risks, benefits and alternative treatment options, patient undergoing coronary angiography. Risks, benefits, alternative options discussed and informed consent was obtained. DESCRIPTION OF PROCEDURE: The patient underwent left heart catheterization by right radial approach 6-Chilean right radial sheath. Post procedure, access site hemostasis secured with right radial band. The patient tolerated the procedure well. COMPLICATIONS: None. PROCEDURES DONE: 1. Ultrasound-guided right radial artery visualization and access. 2. Left heart catheterization. 3. LVG. 4. Coronary cineangiography. 5. Conscious sedation of 30 minutes. FINDINGS: HEMODYNAMICS: Aortic systolic 109, diastolic 46, mean 74 mmHg. LVEDP of 15 mmHg. No significant gradient across the aortic valve. LEFT VENTRICULOGRAM: Overall left ventricular systolic function is normal with LV ejection fraction of 65% to 70%, mid inferior hypokinesia present. CORONARY CINEANGIOGRAPHY: Left main coronary artery is a large caliber vessel arising from the left aortic sinus with distal 20% to 30% narrowing, engaged with JL4 catheter from right radial approach. LAD is a medium caliber vessel arising at the bifurcation of left main coronary artery, courses through the anterior interventricular groove and ends by wrapping around the apex. LAD after the major diagonal, diagonal 3 has about 30% narrowing. Diagonal 1 and 2 are 2 mm with mild luminal irregularities. Diagonal 3 is a major vessel that runs like a parallel LAD and has ostial 70% narrowing. This lesion was interrogated in multiple views. Circumflex artery is a medium caliber nondominant vessel, arising at the bifurcation of left main coronary artery and predominantly continues as a principal obtuse marginal branch, which is 4.5 mm in diameter with minimal irregularities. OM2 and OM3 are less than 2 mm caliber vessels. Right coronary artery is a large caliber dominant vessel with a vertical takeoff, engaged with JR4 catheter from right radial approach and courses through the right AV groove and ends at the posterior crux by dividing into PDA and a posterolateral branch. Mid and distal RCA has areas of 30% narrowing. IMPRESSION: 1. A 75-year-old left ventricular ejection fraction 65% to 70%. 2. Mid inferior hypokinesia present. 3. Left ventricular end-diastolic pressure of 15 mmHg with no significant gradient across the aortic valve. 4. Left main distal 20% to 30% narrowing. 5. Left anterior descending proximal and mid 30% narrowing. 6. Diagonal 3 ostial 70% narrowing. 7. Circumflex marginal with minimal disease. 8. Dominant right coronary artery with mid and distal 30% narrowing. RECOMMENDATIONS: Recommend continued aggressive coronary risk factor modification, namely low-fat, low-cholesterol diet, maintaining ideal body weight, keeping LDL less than 70 mg/dL, and then systolic of 130 mmHg and hemoglobin A1c less than 7%. The patient was recommended dual antiplatelet therapy at least 1 year and then his atorvastatin is increased to 80 mg p.o. at bedtime. Beta-franchesca Toprol-XL 25 mg was added in addition to his prior lisinopril. BV MD Randy TID: [id number] RECEIPT: [id number] /SIR cc: Dr. Smith
== END 2025-05-24 10:59 | disposition home or self-care (01) | DRG 282 ==
LOC: ER 03:37 → ED HOLD 05:03 → EDBEDREQ 06:19 → PCU 3S 07:30
PROVIDERS: ADMIT Internal Medicine Critical Care Medicine; ATTEND Family Medicine
PROC: 4A023N7 Measurement of Cardiac Sampling and Pressure, Left Heart, Percutaneous Approach (ICD-10-PCS; principal; 2025-05-23)
PROC: B2111ZZ Fluoroscopy of Multiple Coronary Arteries using Low Osmolar Contrast (ICD-10-PCS; 2025-05-23)
PROC: B2151ZZ Fluoroscopy of Left Heart using Low Osmolar Contrast (ICD-10-PCS; 2025-05-23)
DX: I21.4 Non-ST elevation (NSTEMI) myocardial infarction (principal); E11.9 Type 2 diabetes mellitus without complications; I10 Essential (primary) hypertension; E78.5 Hyperlipidemia, unspecified; N40.0 Benign prostatic hyperplasia without lower urinary tract symptoms; G43.109 Migraine with aura, not intractable, without status migrainosus; Z87.891 Personal history of nicotine dependence; Z82.49 Family history of ischemic heart disease and other diseases of the circulatory system; Z80.42 Family history of malignant neoplasm of prostate; Z63.4 Disappearance and death of family member; I24.9 Acute ischemic heart disease, unspecified
CPT/HCPCS: 36415; 76937; 80048; 80061; 82948; 83036; 83735; 83880; 84132; 84484; 85025; 85347; 85730; 87081; 93005; 93306; 93458; 96365; 99152; 99153; 99285; A6258; C1894; G0378; J1200; J1644; J1815; J2003; J2250; J3010; J3490; J7030; Q9967